=== PATIENT | male | born 1960 | race African-American/Black ===

== ENCOUNTER 2021-03-05 12:11 | Inpatient (IN) | payer OTHER ==
[2021-03-05 13:26] VITALS: BMI 27.2
[2021-03-05] MEDS ORDERED: MAGNESIUM CITRATE 300 ML BOTTLE PO PRN (13:49)
[2021-03-05] MEDS ORDERED: MAG HYDROX/AL HYDROX/SIMETH 30 ML UNIT-DOSE CUP PO PRN (13:49)
[2021-03-05] MEDS ORDERED: ACETAMINOPHEN 325 MG TABLET (FP) PO PRN ×2 (13:49)
[2021-03-05] MEDS ORDERED: METHOCARBAMOL 500 MG TABLET PO PRN (13:49)
[2021-03-05] MEDS ORDERED: NICOTINE 10 MG CARTRIDGE (INHALER) IH PRN (13:49)
[2021-03-05] MEDS ORDERED: IBUPROFEN 400 MG TABLET (FP) PO PRN (13:49)
[2021-03-05] MEDS ORDERED: LORazepam 1 MG TABLET PO PRN (13:49)
[2021-03-05] MEDS ORDERED: MAGNESIUM HYDROX 2400MG/30ML ORAL SUSPENSION 30 ML CUP PO PRN (13:49)
[2021-03-05] MEDS ORDERED: MENTHOL/PHENOL 1 EACH UD MM PRN (13:49)
[2021-03-05] MEDS ORDERED: ONDANSETRON *ODT* 4 MG TABLET SL PRN (13:49)
[2021-03-05] MEDS ORDERED: BISMUTH SUBSALICYLATE 524 MG/30 ML PO PRN (13:49)
[2021-03-05] MEDS ORDERED: ALBUTEROL SO4 HFA INHALER IH PRN (14:01)
[2021-03-05] MEDS: hydrOXYzine PAMOATE 25 MG CAPSULE (FP) PO SCH ×3 (15:33→22:28)
[2021-03-05 17:57] LABS: CALCIUM 8.3 mg/dL (8.5-10.1); HEMATOCRIT 43.9 % (35.4-49); HEMOGLOBIN 14.8 GM/dL (11.7-16.9); MCH 35.4 pg (25.7-33.7); MCHC 33.8 g/dl (32.0-35.9); MEAN CELL VOLUME 104.8 fl (80-96); MEAN PLT VOLUME 6.4 fl (7.5-11.1); PLATELET COUNT 106 10^3/uL (134-434); RBC 4.19 M/mm3 (4.00-5.60); RDW 15.2 % (11.9-15.9); WHITE BLOOD COUNT 5.1 K/mm3 (4.0-10.0)
[2021-03-05 17:58] LABS: ALBUMIN 2.9 g/dl (3.4-5.0); BLOOD UREA NITROGEN 10.5 mg/dL (7-18)
[2021-03-05 18:01] LABS: BILIRUBIN,TOTAL 0.7 mg/dL (0.2-1); CREATININE 1.1 mg/dL (0.55-1.3); TOT PROT 5.9 g/dl (6.4-8.2)
[2021-03-05] MEDS: LORazepam 2 MG TABLET PO SCH ×2 (18:50→22:26)
[2021-03-05] MEDS ORDERED: MELATONIN 5 MG TABLETS PO SCH (22:00)
[2021-03-05] MEDS: THIAMINE HCL 100 MG TABLET (FP) PO SCH (22:23)
[2021-03-05] MEDS: MELATONIN 5 MG TABLETS PO SCH (22:28)
[2021-03-06] MEDS: LORazepam 2 MG TABLET PO SCH ×4 (05:12→23:01)
[2021-03-06] MEDS: hydrOXYzine PAMOATE 25 MG CAPSULE (FP) PO SCH ×5 (05:12→23:02)
[2021-03-06] MEDS: ASPIRIN 81 MG CHEWABLE TABLETS PO SCH (10:47)
[2021-03-06] MEDS ORDERED: methaDONE HCL 10 MG TABLET PO ONE (13:41)
[2021-03-06] MEDS ORDERED: methaDONE 80 MG, methaDONE 20 MG PO ONE (14:00)
[2021-03-06] MEDS ORDERED: methaDONE HCL 40 MG DISPERSABLE TABLET ONE (14:04)
[2021-03-06] MEDS ORDERED: methaDONE HCL 10 MG TABLET ONE (14:04)
[2021-03-06] MEDS: THIAMINE HCL 100 MG TABLET (FP) PO SCH (23:01)
[2021-03-06] MEDS: MELATONIN 5 MG TABLETS PO SCH (23:02)
[2021-03-07] MEDS ORDERED: methaDONE HCL 40 MG DISPERSABLE TABLET ONE (04:29)
[2021-03-07] MEDS ORDERED: methaDONE HCL 10 MG TABLET ONE (04:29)
[2021-03-07] MEDS: methaDONE 80 MG, methaDONE 20 MG PO SCH (05:20)
[2021-03-07] MEDS: hydrOXYzine PAMOATE 25 MG CAPSULE (FP) PO SCH (05:21)
[2021-03-07] MEDS: LORazepam 1 MG TABLET PO SCH ×4 (05:21→22:28)
[2021-03-07] MEDS ORDERED: methaDONE HCL 10 MG TABLET PO SCH (06:00)
[2021-03-07] MEDS ORDERED: LORazepam 1 MG TABLET PO PRN (09:20)
[2021-03-07] MEDS: ASPIRIN 81 MG CHEWABLE TABLETS PO SCH (10:39)
[2021-03-07] MEDS: DOCUSATE SODIUM 100 MG CAPSULE (FP) PO SCH ×2 (14:55→22:27)
[2021-03-07] MEDS ORDERED: SENNOSIDES 8.6MG TABLET (FP) PO SCH (22:00)
[2021-03-07] MEDS: THIAMINE HCL 100 MG TABLET (FP) PO SCH (22:27)
[2021-03-07] MEDS: MELATONIN 5 MG TABLETS PO SCH (22:27)
[2021-03-08] MEDS ORDERED: LORazepam 0.5 MG TABLET PO PRN
[2021-03-08] MEDS: methaDONE 80 MG, methaDONE 20 MG PO SCH (06:22)
[2021-03-08] MEDS: LORazepam 0.5 MG TABLET PO SCH ×2 (06:23→10:29)
[2021-03-08] MEDS: DOCUSATE SODIUM 100 MG CAPSULE (FP) PO SCH ×2 (06:23→13:17)
[2021-03-08] MEDS ORDERED: methaDONE HCL 40 MG DISPERSABLE TABLET ONE (07:21)
[2021-03-08] MEDS ORDERED: methaDONE HCL 10 MG TABLET ONE (07:21)
[2021-03-08] MEDS: ASPIRIN 81 MG CHEWABLE TABLETS PO SCH (10:29)
[2021-03-08] MEDS: LACTULOSE 20 GM/30 ML UDC (FOR ORAL USE ONLY) PO SCH ×2 (11:00→13:17)
[2021-03-08 12:53] VITALS: BP 117/84; PULSE 90; TEMP 97.3
[2021-03-09] MEDS ORDERED: LORazepam 0.5 MG TABLET PO ONE (05:00)
== END 2021-03-08 13:45 | disposition home or self-care (01) | DRG 897 ==
LOC: YASAS 12:11 → Y6N 14:16
PROVIDERS: ADMIT Allergy & Immunology; ATTEND Allergy & Immunology
PROC: HZ2ZZZZ Detoxification Services for Substance Abuse Treatment (ICD-10-PCS; principal; 2021-03-05)
DX: F10.230 Alcohol dependence with withdrawal, uncomplicated (principal); F11.20 Opioid dependence, uncomplicated; F13.230 Sedative, hypnotic or anxiolytic dependence with withdrawal, uncomplicated; F17.213 Nicotine dependence, cigarettes, with withdrawal; F32.9 Major depressive disorder, single episode, unspecified; I25.10 Atherosclerotic heart disease of native coronary artery without angina pectoris; J45.20 Mild intermittent asthma, uncomplicated; Z88.8 Allergy status to other drugs, medicaments and biological substances; Z95.5 Presence of coronary angioplasty implant and graft; Z56.0 Unemployment, unspecified
CPT/HCPCS: 36415; 71045-TC-FY; 80053; 82140; 85027; 86780; C9803; Q0162; U0003; U0005